=== PATIENT | male | born 1970 | race Caucasian/White ===

== ENCOUNTER 2018-05-30 02:19 | Emergency (ER) | payer SELFPAY ==
[2018-05-30] MEDS ORDERED: Piperacillin/Tazobactam 4.5 GM VIAL ONE (02:57)
[2018-05-30 03:07] LABS: #Basophils 0.1 thou/uL (0.0-0.2); #Eosinphils 0.2 thou/uL (0.0-0.7); #Lymphocytes 1.5 thou/uL (1.20-3.40); #Monocytes 1.3 thou/uL (0.11-0.59); #Neutrophils 9.3 thou/uL (1.40-6.50); %Basophils 0.5 % (0.0-1.0); %Eosinophils 1.5 % (0.0-10.0); %Lymphocytes 12.3 % (21.0-51.0); %Monocytes 10.7 % (0.0-10.0); Hemoglobin 14.3 g/dL (14.0-18.0); Mean Corpuscular HGB CONC 34.2 g/dL (32.0-36.0); Mean Corpuscular Hemoglobin 31.2 pg (27.0-31.0); Mean Corpuscular Volume 91.1 fL (78.0-98.0); Mean Platelet Volume 6.8 fL (7.4-10.4); Platelet Count 318 thou/uL (130-400); RBC Distribution Width 12.5 % (11.5-14.5); Red Blood Cell (RBC) Count 4.58 mill/uL (4.70-6.10); White Blood Cell (WBC) Count 12.4 thou/uL (4.8-10.8)
[2018-05-30 03:29] LABS: ALT (SGPT) 20 U/L (8-55); AST (SGOT) 13 U/L (5-34); Albumin 3.8 g/dL (3.5-5.0); Alkaline Phosphatase 137 U/L (40-150); Anion Gap 15 mmol/L (10-20); BUN (Urea Nitrogen) 17 mg/dL (8.9-20.6); Bilirubin, Total 0.6 mg/dL (0.2-1.2); Calc. Creatinine Clearance 0 mL/min (70-130); Calcium 9.8 mg/dL (7.8-10.44); Carbon Dioxide 23 mmol/L (22-29); Chloride 98 mmol/L (98-107); Estimated GFR-MDRD Greater than 90; Globulin 3.6 g/dL (2.4-3.5); Glucose 367 mg/dL (70-105); Potassium 4.3 mmol/L (3.5-5.1); Protein, Total 7.4 g/dL (6.0-8.3); Sodium 132 mmol/L (136-145)
--- NOTE | 2018-05-30 09:19 | CT ---
PRELIMINARY REPORT/[facility]/EMERGENTY AFTER-HOURS PROCEDURE Addendum created by Jose Tyson MD on 05/30/2018 4:26 AM Central Time ([place] & [place]) THIS REPORT CONTAINS FINDINGS THAT MAY BE CRITICAL TO PATIENT CARE. The findings were verbally communicated via t elephone conference with Betty Perry at 4:26 AM CDT on 05/30/2018. The findings were acknowled ged and understood. Initial Report created on 05/30/2018 4:19 AM Central Time ([place] & [place]) CT Head With Intravenous Contrast CLINICAL HISTORY: 47 years old, male; Condition or disease; Other: Abscess; Patient HX: Eval for abscess, 47m presents with an open abscess to the top of his head. Patient reports that it has been present x 3 weeks. Was seen and evaluated at that time, has not taken abx. Reports swelling to bilateral eyes now. No fever or chills. No headaches. No vision changes. TECHNIQUE: Axial computed tomography images of the head/brain with intravenous contrast. Coronal and sagittal reformatted images were created and reviewed. COMPARISON: No relevant prior studies available. FINDINGS: Normal brain morphology. Mosquera-white matter differentiation is preserved. No intracranial hemorrhage or hydrocephalus. No mass, mass effect or midline shift. No effacement of the cortical sulci and basal cisterns. Orbits are unremarkable. Paranasal sinuses are clear. Mastoid air cells are clear. No acute fracture. Diffuse frontal scalp soft tissue swelling from the vertex extending down to the level of the supraor bital soft tissues. There is an open wound in the frontal scalp soft tissue at the vertex. Just below this is an area of hypodensity measuring approximately 3.8 x 3.1 x 0.6 cm (TV x CC x AP) with irregular peripheral enhancement and containing scattered foci of gas IMPRESSION: 1. No acute intracranial abnormality. 2. Diffuse frontal scalp soft tissue swelling from the vertex extending down to the level of the supr aorbital soft tissues. There is an open wound in the frontal scalp soft tissue at the vertex. Just be low this is an area of hypodensity as described above suspicious for frontal scalp abscess formation. Thank you for allowing us to participate in the care of your patient. Dictated and Authenticated by: Jose Tyson MD 05/30/2018 4:19 AM Central Time ([place] & [place]) FINAL REPORT HEAD CT WITH COTNRAST: HISTORY: Evaluate for abscess. COMPARISON: None. FINDINGS: This report is in agreement with the preliminary report by [facility]. There is diffuse frontal scalp swell ing. There is a well-circumscribed hypodensity in the scalp compatible with an infected fluid collec tion. Small ulceration involving the anterior scalp near the vertex is noted. Underlying calvarium is intact. No acute intracranial process. POS: [facility]
[2018-05-30] MEDS ORDERED: ISOVUE-370 76%-LOCM 1 ML ONE (10:02)
== END 2018-05-30 07:15 | disposition home or self-care (01) ==
LOC: ERS 02:19
DX: L02.811 Cutaneous abscess of head [any part, except face] (principal); L03.211 Cellulitis of face; E11.40 Type 2 diabetes mellitus with diabetic neuropathy, unspecified; Z79.899 Other long term (current) drug therapy; Z79.84 Long term (current) use of oral hypoglycemic drugs
CPT/HCPCS: 36415; 70460; 80053; 83605; 85025; 87040; 96365; 96366; 96367; J2543; J3370